=== PATIENT | female | born 1960 | race Caucasian/White ===

== ENCOUNTER 2017-04-16 11:27 | Day surgery (SDC) | payer BC ==
[2017-04-14 15:21] VITALS: BMI 26.6
[~2017-04-16 11:27] MED LIST: ALBUTEROL NEB (CONC) 2.5 MG/0.5 ML INHALATION ONE; ATROPINE SULFATE 0.4 MG/ML 1 ML VIAL IM ONE; LACTATED RINGERS 1,000 ML IV ONE; LACTATED RINGERS 1,000 ML IV SCH; LIDOCAINE 2% (PF) 20 MG/ML 10ML INHALATION ONE
[2017-04-16 12:01] VITALS: TEMP 98.2
--- NOTE | 2017-04-16 13:06 | P.PCN ---
Date of Procedure: 04/16/17 Preoperative Diagnosis: chronic cough Postoperative Diagnosis: chronic bronchitis, diffuse mucosal inflammatory changes Anesthesia: MAC Surgeon: Elmer Dwyer Bullion Weigher #1: Stated None Estimated Blood Loss (ml): 0 Condition: stable Disposition: same day Indications for Procedure: chronic cough Operative Findings: This procedure was done under conscious sedation with anesthetic agents being administered by anesthesia the bedside. After achieving a adequate sedation, the flexible bronchoscope was inserted through the right nostril was advanced into the upper airway. Examination of posterior oropharynx, larynx, epiglottis , vallecula, true and false vocal cords were done and all of these upper airway structures were within normal limits. A total of 2 mL of 1% lidocaine was applied to the vocal cords and following that the bronchoscope was advanced with Doppler airway. Examination of the tracheal bronchial tree was initiated. The trachea was quite patent. Immediately after insertion of the bronchoscope into the tracheal lumen, the patient started having extensive coughing spells. She did experience some limited oxygen desaturation with her pulse ox dropped down to the mid 80s. The procedure was continued and the airway inspection was done. The visualized airways included the distal trachea , bilateral mainstem bronchi right upper back negative right lower lobe and left upper and left lower lobe bronchi. There was mucosal inflammatory changes mainly in the left side involving the left upper lobe bronchus lingular segment and left lower lobe bronchus. Similar inflammatory changes were seen in the right side. There was also significant amount of respiratory secretions that were somewhat thick and creamy yellowish in color. Therapeutic airway suctioning was done. As I was getting ready to undergo a bronchioloalveolar lavage of the lingular segment, the patient desaturated and her pulse ox dropped in the 40s. I had to remove the bronchoscope and the airway was secured and with repeated diagnosed pulse ox recovered up to the mid 90s within 20-30 seconds. The patient was clenching and somewhat asynchronous breathing. Within the next few minutes, her breathing improved and she continued to maintain a pulse ox above 90%. She continued to have frequent coughing spells even after removal of the bronchoscope. Unable to do segmental inspection of the airways and the airway inspection was only limited into the primary airways. The secretions that were suctioned out were sent for microbial cultures and analysis. My plan is to treat this patient with a course of antibiotics, and the patient will be given Zithromax 5 mg for the next one week, prednisone burst taper and she'll be started on Breo Ellipta 200/25 one puff a day and Tussionex for cough. I'll see her in the office for further recommendations.
[2017-04-16] MEDS ORDERED: LEVALBUTEROL NEB 1.25 MG/3 ML AMP INHALATION ONE (13:14)
--- NOTE | 2017-04-16 13:32 | XR ---
EXAMINATION TYPE: XR chest 1V portable DATE OF EXAM: 04/16/2017 COMPARISON: NONE HISTORY: Post bronchoscopy. Shortness of breath TECHNIQUE: Single frontal view of the chest is obtained. FINDINGS: There is narrowing of the subglottic trachea at the level of C6. There is no focal air spa ce opacity, pleural effusion, or pneumothorax seen. The cardiac silhouette size is within normal lawson its. The osseous structures are intact. IMPRESSION: Tracheal narrowing may relate to postbronchoscopy spasm. Radiograph of the neck soft tis sues could be performed for further evaluation.
[2017-04-16 14:14] VITALS: RESP 18
[2017-04-16 14:26] VITALS: BP 137/66; PULSE 75
== END 2017-04-16 14:46 | disposition home or self-care (01) ==
LOC: ORWHC2ENDO 11:27
PROVIDERS: ATTEND Internal Medicine Critical Care Medicine
DX: J42 Unspecified chronic bronchitis (principal); Z79.890 Hormone replacement therapy; I10 Essential (primary) hypertension; E78.5 Hyperlipidemia, unspecified; Z87.891 Personal history of nicotine dependence; Z79.899 Other long term (current) drug therapy; Z88.5 Allergy status to narcotic agent
CPT/HCPCS: 94640; 87070; 87205; 71010; 31645; J2001

== ENCOUNTER → 2021-06-28 | Outpatient (CLI) | payer BC ==
--- NOTE | 2021-06-29 12:53 | MM ---
Reason for exam: screening (asymptomatic). Last mammogram was performed 2 years and 9 months ago. History: Patient is postmenopausal and had first child at age 32. Benign excisional biopsy of the left breast. Taking estrogen for 3 years. Taking progesterone for 3 years. Physical Findings: A clinical breast exam by your physician is recommended on an annual basis and results should be correlated with mammographic findings. MG 3D Screening Mammo W/Cad Bilateral CC and MLO view(s) were taken. Prior study comparison: September 23, 2018, mammogram. May 27, 2016, mammogram. The breast tissue is extremely dense which could obscure a lesion on mammography. Finding: Stable architectural distortion in the upper outer quadrant of the left breast consistent with known excision changes. There is no discrete abnormality. ASSESSMENT: Negative, BI-RAD 1 RECOMMENDATION: Routine screening mammogram of both breasts in 1 year.
== END | disposition home or self-care (01) ==
LOC: RADMAMWWP 09:17
PROVIDERS: ATTEND Obstetrics & Gynecology
DX: Z12.31 Encounter for screening mammogram for malignant neoplasm of breast (principal); Z78.0 Asymptomatic menopausal state
CPT/HCPCS: 77063; 77067

== ENCOUNTER → 2022-07-01 | Outpatient (CLI) | payer BC ==
--- NOTE | 2022-07-02 07:27 | MM ---
Reason for Exam: Screening (asymptomatic). Last screening mammogram was performed 12 month(s) ago. Patient History: Menarche at age 15. First Full-Term at age 32. Late child-bearing (after 30). Postmenopausal. Currently using Estrogen, for 3 years. Currently using Progesterone, for 3 years. Benign Excisional Biopsy on the left side. Risk Values: Shayy 5 year model risk: 2.3%. NCI Lifetime model risk: 10.1%. Prior Study Comparison: 05/27/2016 Screening Mammogram, Unknown. 09/23/2018 Screening Mammogram, Unknown. 06/28/2021 Bilateral Screening Mammogram, [facility]. Tissue Density: The breast tissue is heterogeneously dense. This may lower the sensitivity of mammography. Findings: Analyzed By CAD. There is no suspicious group of microcalcifications or new suspicious mass in either breast. No significant change from prior exams. Overall Assessment: Negative, BI-RAD 1 Management: Screening Mammogram of both breasts in 1 year. A clinical breast exam by your physician is recommended on an annual basis and results should be correlated with mammographic findings. Electronically signed and approved by: Remy Collier D.O.
== END | disposition home or self-care (01) ==
LOC: RADMAMWWP 11:22
PROVIDERS: ATTEND Obstetrics & Gynecology
DX: Z12.31 Encounter for screening mammogram for malignant neoplasm of breast (principal); Z78.0 Asymptomatic menopausal state
CPT/HCPCS: 77063; 77067

== ENCOUNTER → 2023-08-14 | Outpatient (CLI) | payer BC ==
--- NOTE | 2023-08-14 09:31 | MM ---
Reason for Exam: Screening (asymptomatic). Last mammogram was performed 1 year(s) and 2 month(s) ago. Patient History: Menarche at age 15. First Full-Term at age 32. Late child-bearing (after 30). Postmenopausal. Patient has history of breast feeding. Currently using Estrogen, for 3 years. Currently using Progesterone, for 3 years. Benign Excisional Biopsy on the left side. Risk Values: Shayy 5 year model risk: 2.3%. NCI Lifetime model risk: 9.8%. Prior Study Comparison: 09/23/2018 Screening Mammogram, Unknown. 06/28/2021 Bilateral Screening Mammogram, [facility]. 07/01/2022 Bilateral MG 3D screening mammo w/cad, [facility]. Tissue Density: The breast tissue is heterogeneously dense. This may lower the sensitivity of mammography. Findings: Analyzed By CAD. There is no suspicious group of microcalcifications or new suspicious mass. Overall Assessment: Negative, BI-RAD 1 Management: Screening Mammogram of both breasts in [address] [facility] will attempt to contact patient to return for supplemental views and ultrasound if indicated. Patient should continue monthly self-breast exams. A clinical breast exam by your physician is recommended on an annual basis. This exam should not preclude additional follow-up of suspicious palpable abnormalities. Note on Shayy scores and lifetime risk: 1. A Shayy score greater than 3% is considered moderate risk. If this is the case, consider specialist referral to assess eligibility for a risk reducing agent. 2. If overall lifetime risk for the development of breast cancer is 20% or higher, the patient may qualify for future screening with alternating mammogram and breast MRI. Electronically signed and approved by: Delmar Fletcher DO
== END | disposition home or self-care (01) ==
LOC: RADMAMWWP 09:01
PROVIDERS: ATTEND Obstetrics & Gynecology
DX: Z12.31 Encounter for screening mammogram for malignant neoplasm of breast (principal); Z78.0 Asymptomatic menopausal state
CPT/HCPCS: 77063; 77067